=== PATIENT | male | born 1950 | race Caucasian/White ===

== ENCOUNTER → 2017-06-27 | Outpatient (CLI) | payer MEDICARE ==
[~2017-06-27] MED LIST: AMIO200; ASPI81CH PO; ATEN50 PO; ATOR20; AZIT250 PO; FISH1000 PO; FURO40; Flomax0.4 MG PO; GLUC500 PO; HYDACE5 PO; HYDCHL25 PO; IBUP800 PO; K-Dur10 MEQ; LISI5; MULVITMIND PO; MULVITMINF PO; OXYACE5T; POLYETHYLENE G255 GM; POTCIT10 PO; Pyridium100 MG PO
== END | disposition home or self-care (01) ==
LOC: LAB SHORT 14:46 → PLD 14:46
DX: C44.41 Basal cell carcinoma of skin of scalp and neck (principal)
CPT/HCPCS: 88305

== ENCOUNTER 2018-05-02 07:46 | Day surgery (SDC) | payer MEDICARE, OTHER ==
[~2018-05-02] VITALS: Ht 172.7 cm; Wt 81.2 kg
== END 2018-05-02 10:04 | disposition home or self-care (01) ==
LOC: ORSCSDS 07:46
PROVIDERS: Internal Medicine Gastroenterology
PROC: 0DJD8ZZ Inspection of Lower Intestinal Tract, Via Natural or Artificial Opening Endoscopic (ICD-10-PCS; principal; 2018-05-02 09:15)
DX: Z12.11 Encounter for screening for malignant neoplasm of colon (principal); K57.30 Diverticulosis of large intestine without perforation or abscess without bleeding; K64.8 Other hemorrhoids; I10 Essential (primary) hypertension; I25.810 Atherosclerosis of coronary artery bypass graft(s) without angina pectoris; Z87.891 Personal history of nicotine dependence; Z79.82 Long term (current) use of aspirin; Z79.899 Other long term (current) drug therapy
CPT/HCPCS: J7120

== ENCOUNTER → 2019-01-29 | Outpatient (CLI) | payer MEDICARE, OTHER | END | disposition home or self-care (01) | LOC: PLD 07:58 → LAB SHORT 07:58 | DX: L82.1 Other seborrheic keratosis (principal) | CPT/HCPCS: 88305 ==

== ENCOUNTER 2021-03-02 09:26 | Day surgery (SDC) | payer MEDICARE ==
[~2021-03-02] VITALS: Ht 172.7 cm; Wt 87.2 kg
[~2021-03-02 09:26] MED LIST changes: +ALBU2.5V5 INH; +Flovent Diskus50 MCG IH; +VERA240ER PO
[2021-03-02] MEDS ORDERED: CO Q1060 MG PO (09:54)
--- NOTE | 2021-03-02 12:54 | NUR ---
PATEINT RETURNED FROM THE [facility], PLACED ON THE MONITOR, CALL LIGHT IN REACH. VVS. RIGHT GROIN WITH DRESSING. ACCESSED WITH NEEDLE ONLY, NO SHEATH. CDI, NO BLEEDING NOTED, NO HEMATOMA. LEFT RADIAL TR BAND IN PLACE WITH 12 ML OF AIR IN THE BAND AND AT THE BEDSIDE. URINAL USED WITH ASSISTANCE FROM AND VOIDED 350 ML OF URINE.
--- NOTE | 2021-03-02 13:24 | NUR ---
PATIENT FEEDING SELF LUNCH. LEFT RADIAL UNCHANGED, WHITE BOARD IN PLACE. VVS. LEGT GROIN DRESSING CDI. ONLY USING RIGHT HAND TO FEED SELF. NO PAIN NOTED.
--- NOTE | 2021-03-02 14:05 | NUR ---
2 CC AIR REMOVED FROM TR BAND. NO BLEEDING AT SITE.
--- NOTE | 2021-03-02 14:19 | NUR ---
REMAINDER OF AIR REMOVED FROM TR BAND OVER 5 MINUTES. NO BLEEDING AT SITE.
--- NOTE | 2021-03-02 14:40 | NUR ---
AMBULATED TO BATHROOM. TOLERATED WELL. DRESSING FOR DISCHARGE.
--- NOTE | 2021-03-02 14:54 | NUR ---
DISCHARGE INSTRUCTIONS GIVEN WITH VERBAL AND WRITTEN UNDERSTANDING.
--- NOTE | 2021-03-02 15:08 | NUR ---
TR BAND REMOVED INTACT. NO BLEEDING AT SITE. CLOTHDOT, IMMOBILIZER AND SLING APPLIED. IV REMOVED INTACT. 2X2, COBAN AND MANUAL PRESSURE APPLIED.
--- NOTE | 2021-03-02 15:30 | NUR ---
DISCHARGED HOME VIA WHEELCHAIR. DRIVING.
== END 2021-03-02 15:58 | disposition home or self-care (01) ==
LOC: MHTC 09:26
DX: I25.10 Atherosclerotic heart disease of native coronary artery without angina pectoris (principal); I47.1 Supraventricular tachycardia; I65.29 Occlusion and stenosis of unspecified carotid artery; I11.0 Hypertensive heart disease with heart failure; I50.9 Heart failure, unspecified; Z88.5 Allergy status to narcotic agent; Z95.1 Presence of aortocoronary bypass graft; Z87.891 Personal history of nicotine dependence
CPT/HCPCS: 76937; 93459; 99152; 99153; C1769; C1894; J1644; J2250; J3010; J7030; J7050; Q9967

== ENCOUNTER 2021-07-03 06:22 | Day surgery (SDC) | payer MEDICARE ==
[~2021-07-03] VITALS: Ht 172.7 cm; Wt 88.0 kg
[~2021-07-03 06:22] MED LIST changes: +CO Q1060 MG PO; -LISI5; +LISI5 PO
--- NOTE | 2021-07-03 09:42 | NUR ---
[facility]INT RETURNED FROM THE [facility] AND SBAR RECEIVED FROM GLEN SORIANO S. RN AT THE BEDSIDE. PATIENT PLACE ON THE MONITOR AND SIDE RAILS UP X TWO. CALL LIGHT IN REACH. RFA SITE CHECKED AND DRESSING CDI. PULSES DOPPLER. PATIENT IS S/P PERIPHERAL AND CAROTID ANGIOGRAPHY. NO INTERVENTION. HOB FLAT.
--- NOTE | 2021-07-03 12:27 | NUR ---
PATIENT UP OOB TO THE RESTRROM. PIV REMOVED AND CATH TIP INTACT. PRESSURE DRESSING APPLIED. PATIENT TAKEN OFF THE MONITOR. PATIENT DRESSED. REVIEWED DISCHARGE INSTRUCTIONS AND UNDERSTANDS THAT HE WILL HAVE A REFERRAL TO [facility] FOR CAROTID WORK AND THEN WILL COME BACK TO DR. MASON FOR LEG INTERVENTION. PATIENT VERBALIZED UNDERSTANDING.
== END 2021-07-03 12:30 | disposition home or self-care (01) ==
LOC: MHTC 06:22
DX: I65.23 Occlusion and stenosis of bilateral carotid arteries (principal); I65.01 Occlusion and stenosis of right vertebral artery; I70.213 Atherosclerosis of native arteries of extremities with intermittent claudication, bilateral legs; I45.19 Other right bundle-branch block; I44.0 Atrioventricular block, first degree; I25.10 Atherosclerotic heart disease of native coronary artery without angina pectoris; I10 Essential (primary) hypertension; Z95.1 Presence of aortocoronary bypass graft; Z87.891 Personal history of nicotine dependence; Z88.5 Allergy status to narcotic agent; Z79.82 Long term (current) use of aspirin
CPT/HCPCS: 36223; 36225; 75716; 76937; 99152; 99153; C1760; C1769; C1887; C1894; J1644; J2250; J3010; J7030; J7040; Q9967

== ENCOUNTER 2022-01-11 08:54 | Day surgery (SDC) | payer MEDICARE ==
[~2022-01-11] VITALS: Ht 172.7 cm; Wt 86.0 kg
[~2022-01-11 08:54] MED LIST changes: +CLOP75 PO; +FISH OIL 1,2001 EAC7 PO; -FISH1000 PO; +Hair, Skin & N1 EACH PO; +IBUP200 PO; -MULVITMIND PO
[2022-01-11 12:37] LABS: Hematocrit 32.9 % (37.0-53.0); Hemoglobin 11.2 g/dL (13.5-17.5)
[2022-01-11 14:21] LABS: Hematocrit 39.8 % (37.0-53.0); Hemoglobin 13.7 g/dL (13.5-17.5)
== END 2022-01-11 15:40 | disposition short-term general hospital (02) ==
LOC: MHTC 08:54
PROVIDERS: Radiology Diagnostic Radiology
DX: I70.213 Atherosclerosis of native arteries of extremities with intermittent claudication, bilateral legs (principal); I70.229 Atherosclerosis of native arteries of extremities with rest pain, unspecified extremity; I10 Essential (primary) hypertension; I25.10 Atherosclerotic heart disease of native coronary artery without angina pectoris; I65.23 Occlusion and stenosis of bilateral carotid arteries; Z79.02 Long term (current) use of antithrombotics/antiplatelets; Z79.82 Long term (current) use of aspirin; Z95.1 Presence of aortocoronary bypass graft; Z87.891 Personal history of nicotine dependence; Z88.5 Allergy status to narcotic agent
CPT/HCPCS: 31500; 36430; 36556; 37221; 37224; 37228; 75625; 75716; 75774; 76937; 77001; 85014; 85018; 86850; 86900; 86901; 86920; 86923; 94002; 99152; 99153; C1725; C1769; C1874; C1876; C1887; C1894; J0461; J1265; J1644; J2250; J2370; J2405; J2704; J3010; J7030; J7040; P9016; P9059; Q9967